=== PATIENT | male | born 1980 | race African-American/Black ===

== ENCOUNTER 2017-09-15 13:34 | Emergency (ER) | payer OTHER ==
[~2017-09-15] VITALS: Ht 175.3 cm; Wt 129.3 kg
[2017-09-15] MEDS ORDERED: IBUPROFEN 600600 M1 PO (14:36)
== END 2017-09-15 14:57 | disposition home or self-care (01) ==
LOC: ER 13:34
DX: S50.01XA Contusion of right elbow, initial encounter (principal); S40.011A Contusion of right shoulder, initial encounter; W00.0XXA Fall on same level due to ice and snow, initial encounter; Y93.89 Activity, other specified; Y92.89 Other specified places as the place of occurrence of the external cause; Y99.8 Other external cause status